=== PATIENT | male | born 1950 | race Caucasian/White ===

== ENCOUNTER 2019-09-01 10:54 | Day surgery (SDC) | payer MEDICARE ==
[~2019-09-01 10:54] MED LIST: ACETAMINOPHEN 1,000 MG/100 ML BTL IVPB ONE; CEFAZOLIN 2 Gram 2 GM/50 ML BAG IVPB ONE
[2019-09-01] MEDS ORDERED: MEPERIDINE 50 MG/1 ML VIAL IVP ONE (10:55)
[2019-09-01] MEDS ORDERED: MORPHINE SULFATE (PACU ONLY) 4 MG/ML VIAL IVP ONE (10:55)
[2019-09-01] MEDS ORDERED: PROPOFOL 10 MG/ML VIAL IV ONE (10:55)
[2019-09-01] MEDS ORDERED: MEPERIDINE PCA 10 MG/ML VIAL IV ONE (10:55)
[2019-09-01 11:15] LABS: HEMATOCRIT 44.9 % (42.0-52.0); HEMOGLOBIN 15.4 gm/dl (14.0-18.0); MEAN CORPUSCULAR HEMOGLOBIN 33.6 pg (27-33); MEAN CORPUSCULAR HGB CONC 34.3 g/dl (32-36); MEAN PLATELET VOLUME 9.3 fl (7.4-10.4); PLATELET COUNT 358 K/uL (130-400); RED BLOOD COUNT 4.58 M/uL (4.40-5.70); RED CELL DISTRIBUTION WIDTH 13.6 % (11.5-14.5); WHITE BLOOD COUNT W/O DIFF 9.8 K/uL (4.2-12.2)
[2019-09-01 11:25] LABS: BLOOD UREA NITROGEN 28 mg/dL (8-23); CREATININE 0.9 mg/dL (0.7-1.2); EST GLOMERULAR FILTRATION RATE > 60 mL/min; GLUCOSE,RANDOM 109 mg/dL (74-109)
[2019-09-01] MEDS ORDERED: RINGERS SOLUTION,LACTATED 1,000 ML IV ONE ×2 (11:30→14:30)
[2019-09-01] MEDS ORDERED: BUPIVACAINE 0.5% W/EPI MPF 30 ML VIAL SQ ONE ×2 (14:26)
[2019-09-01] MEDS ORDERED: MORPHINE SULFATE 10MG/1ML **1ML VIAL IU ONE (14:44)
[2019-09-01] MEDS ORDERED: METHYLPREDNISOLONE 40MG/VIAL IU ONE (14:44)
--- NOTE | 2019-09-03 08:01 | Operative Note ---
DATE OF SURGERY: 09/01/2019 PREOPERATIVE DIAGNOSIS: Internal derangement of the left knee. POSTOPERATIVE DIAGNOSES: 1. Complex tear involving the posterior horn of the medial meniscus. 2. Complex tear involving the lateral horn of the lateral meniscus. 3. Grade 3 chondromalacia of patella. 4. Fiber cartilage with loose marginal cartilage of the notch. 5. Grade 3 chondromalacia of medial femoral condyle. 6. Grade 3 chondromalacia of lateral femoral condyle. 7. Diffuse synovitis. OPERATION: 1. Left knee arthroscopy with partial medial and lateral meniscectomies. 2. Left knee arthroscopy with synovectomy. 3. Left knee arthroscopy with chondroplasty of the medial and lateral patellofemoral compartments. STAFF SURGEON: Benji Daniels MD ANESTHESIA: General. PREPARATION: Chloraprep. INDIVIDUAL CONSIDERATIONS: None. PROCEDURE: The patient was taken to the operating room and placed supine on the operating room table. The patient had a successful induction with general anesthetic. The left lower extremity was prepped and draped in the usual fashion. The patient had a superolateral inflow cannula placed. Skin was infiltrated with 0.5% Marcaine with epinephrine prior. A clear effusion was drained. The knee was inflated with normal saline. An inferomedial and an inferolateral portal were made in a similar fashion. The arthroscope was introduced through the inferolateral portal up into the pouch. Patellofemoral joint showed a diffuse synovitis in the pouch and both gutters, which was debrided out. Grade 3 changes on the patella were smoothed with a shaver. Fiber cartilage of the notch with loose marginal cartilage was debrided medially. Complex degenerative tear involving the posterior horn of the medial meniscus was debrided back to a stable rim with a basket forceps and a shaver. There were grade 3 changes from the posterior half of the femoral condyle medially, and this was smoothed with a shaver. In the notch, the cruciates were normal. Lateral compartment structures show a fringe tear of the lateral meniscus which was debrided back to a stable rim with a basket forceps and a shaver. There were grade 3 changes on the femoral laterally also centered at 45 degrees about the size of an elongated half dollar which was smoothed off with a shaver. The knee was then irrigated out with saline to remove loose floating debris. Portals were closed with kimberlyn, and 20 mL of 0.5% Marcaine with epinephrine along with 4 mg of morphine and 40 mg of Depo-Medrol were injected into the knee. A sterile bulky compressive dressing was applied. The patient tolerated procedure well. Needle and sponge counts were correct. Estimated blood loss was minimal. He was taken back to recovery in good condition. There were no complications. CAROLEE
== END 2019-09-01 15:40 | disposition home or self-care (01) ==
LOC: SUR 10:54
PROVIDERS: ATTEND Orthopaedic Surgery
DX: S83.232A Complex tear of medial meniscus, current injury, left knee, initial encounter (principal); S83.272A Complex tear of lateral meniscus, current injury, left knee, initial encounter; M94.262 Chondromalacia, left knee; M22.42 Chondromalacia patellae, left knee; I10 Essential (primary) hypertension; I48.91 Unspecified atrial fibrillation
CPT/HCPCS: 29880; 29875; 01400; 80048; 85027; J0690; J2270; J1030; J2175; J7120

== ENCOUNTER 2020-01-18 08:27 | Day surgery (SDC) | payer MEDICARE ==
[~2020-01-18 08:27] MED LIST changes: -ACETAMINOPHEN 1,000 MG/100 ML BTL IVPB ONE; +CELECOXIB 100 MG CAPSULE PO ONE; +FAMOTIDINE 20MG TABLET PO ONE; +MECLIZINE 25 MG TABLET PO ONE; +METOCLOPRAMIDE 10 MG TABLET PO ONE; +VANCOMYCIN 1GM/200ML PREMIX 1 GM/200 ML PIGGYBACK IVPB ONE
[2020-01-18] MEDS ORDERED: LIDOCAINE 2% MDV (20MG/ML) 20ML VIAL IV ONE (08:28)
[2020-01-18] MEDS ORDERED: *PACU ONLY* KETAMINE HCL 10 MG/ML (20ML) VIAL IV ONE (08:28)
[2020-01-18] MEDS ORDERED: FENTANYL PF 100MCG/2ML VIAL IV ONE (08:28)
[2020-01-18] MEDS ORDERED: DEXAMETHASONE 4 MG/ML 1ML VIAL IVP ONE (08:28)
[2020-01-18] MEDS ORDERED: PROPOFOL 10 MG/ML VIAL IV ONE (08:28)
[2020-01-18] MEDS ORDERED: ROPIVACAINE HCL (NAROPIN) /PF 5MG/ML 20ML VIAL IV ONE (08:28)
[2020-01-18] MEDS ORDERED: 0.9 % SODIUM CHLORIDE 1000ML 1,000 ML IV ONE ×2 (09:10→11:10)
[2020-01-18 09:30] LABS: ABO GROUP A; ANTIBODY SCREEN NEGATIVE (NEGATIVE); RH TYPE NEGATIVE
[2020-01-18] MEDS ORDERED: SODIUM CHLORIDE IV ONE (10:26)
[2020-01-18] MEDS ORDERED: RINGERS SOLUTION,LACTATED 400 ML IV ONE (10:26)
[2020-01-18] MEDS ORDERED: TRANEXAMIC ACID 1,000 MG/10 ML ML IV ONE (10:52)
[2020-01-18] MEDS ORDERED: TRANEXAMIC ACID 1,000 MG/10 ML ML IU ONE (10:52)
[2020-01-18] MEDS ORDERED: BUPIVACAINE 0.5% W/EPI MPF 30 ML VIAL IU ONE (10:52)
[2020-01-18] MEDS ORDERED: HYDROCODONE/APAP 10/325 TABLET PO PRN ×2 (11:48)
[2020-01-18] MEDS ORDERED: ACETAMINOPHEN W/ CODEINE 300MG/60MG TABLET PO PRN ×2 (11:48)
[2020-01-18] MEDS ORDERED: TRAMADOL HCL 50 MG TABLET PO PRN (11:48)
[2020-01-18] MEDS ORDERED: ZOLPIDEM TARTRATE 5 MG TABLET PO PRN (11:48)
[2020-01-18] MEDS ORDERED: AL HYDROX/MAG HYDROX 30ML UD PO PRN (11:48)
[2020-01-18] MEDS ORDERED: NALOXONE 0.4 MG/1 ML VIAL IVP PRN (11:48)
[2020-01-18] MEDS ORDERED: ONDANSETRON HCL IV 4 MG/2 ML VIAL IVP PRN (11:48)
[2020-01-18] MEDS ORDERED: DIPHENHYDRAMINE HCL 25 MG CAPSULE PO PRN (11:48)
[2020-01-18] MEDS ORDERED: BISACODYL 10 MG SUPP RC PRN (11:48)
[2020-01-18] MEDS ORDERED: ACETAMINOPHEN 325 MG TAB PO PRN (11:48)
[2020-01-18] MEDS ORDERED: HYDROMORPHONE HCL 2 MG/ML VIAL IM PRN (11:48)
[2020-01-18] MEDS ORDERED: KETOROLAC 30 MG/ML VIAL IVP PRN (11:48)
[2020-01-18] MEDS ORDERED: MAGNESIUM HYDROXIDE 30 ML UDC PO PRN (11:48)
[2020-01-18] MEDS ORDERED: FENTANYL PF 100MCG/2ML VIAL IVP ONE ×4 (12:09→12:33)
[2020-01-18] MEDS: LOSARTAN POTASSIUM 25 MG TABLET PO SCH (14:53)
[2020-01-18] MEDS: HYDROCHLOROTHIAZIDE 12.5 MG CAPSULE PO SCH (14:54)
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
[2020-01-18] MEDS: POTASSIUM CHLORIDE/D5-0.9%NACL 20 MEQ/1,000 ML BAG IV SCH ×2 (17:10→22:47)
[2020-01-18] MEDS: CEFAZOLIN 2 Gram 2 GM/50 ML BAG IVPB SCH (22:46)
[2020-01-18] MEDS: DOCUSATE SODIUM 100 MG CAPSULE PO SCH ×2 (22:46→23:01)
[2020-01-19] MEDS: CEFAZOLIN 2 Gram 2 GM/50 ML BAG IVPB SCH ×2 (01:35→10:10)
[2020-01-19] MEDS: POTASSIUM CHLORIDE/D5-0.9%NACL 20 MEQ/1,000 ML BAG IV SCH (06:12)
[2020-01-19 07:19] LABS: HEMATOCRIT 41.9 % (42.0-52.0); HEMOGLOBIN 14.4 gm/dl (14.0-18.0)
[2020-01-19 07:42] LABS: BLOOD UREA NITROGEN 17 mg/dL (8-23); CREATININE 0.8 mg/dL (0.7-1.2); EST GLOMERULAR FILTRATION RATE > 60 mL/min; GLUCOSE,RANDOM 110 mg/dL (74-109)
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
--- NOTE | 2020-01-19 09:30 | Operative Note ---
DATE OF SURGERY: 01/18/2020 PREOPERATIVE DIAGNOSIS: End-stage arthrosis of the left knee. POSTOPERATIVE DIAGNOSIS: End-stage arthrosis of the left knee. OPERATION: Cemented left total knee arthroplasty using Burgess and Nephew Drea II components with a size 7 Oxinium femur, a size 7 stemmed tibia baseplate, a 9 mm lipped highly crosslinked tibial insert, and a 35 mm all-plastic patella. STAFF SURGEON: Benji Daniels MD HOSE SPRAYER: Che Meli Christopher ANESTHESIA: Spinal. PREPARATION: Chloraprep. INDIVIDUAL CONSIDERATIONS: None. PROCEDURE: The patient was taken to the operating room, placed supine on the operating room table. He had a successful induction of a spinal anesthetic. The left lower extremity was prepped and draped in the usual fashion. The patient had a midline approach to the knee. The limb was elevated and tourniquet was inflated to 250 mmHg. Sharp dissection carried down through skin and subcutaneous tissue. Small veins were coagulated with a Bovie. A medial arthrotomy was performed. The patella was everted and the knee was flexed. The patient had exposed bone in the medial and patellofemoral compartments. Fat pad was resected, ACL was sacrificed, and provisional anterior meniscectomies were performed. The capsule was released from the medial proximal tibia. The initial femoral tugboat pilot hole was then made freehand. The intramedullary femoral cutting jig was placed. It was cut in 7.0 degrees of valgus and adjusted for rotation and secured with pins for a 10 mm resection. The initial transverse cut was then made. The skin guide was placed in the anterior and posterior tugboat pilot holes. It was cut in 3 degrees of external rotation. After impacting the tugboat pilot holes, it was found that a size 7 would be appropriate. The anterior and posterior cuts followed by chamfer cuts were made. Osteophytes removed, and a size 7 trial was placed and found to fit well. The tibia was brought forward, and the remainder of the meniscal remnants removed with a Bovie. The extraarticular tibial cutting jig was placed. It was cut in neutral with a 3-degree AP slope. It was set for a 9 mm resection keyed off the high lateral side and secured with pins. When cutting the tibia, care was taken to preserve the PCL insertion on the tibia. Medial osteophytes removed, and I found that I could fit a size 7 baseplate. It was adjusted for rotation and secured with pins. With a 9 mm trial and femoral trial, there was excellent motion and stability. Ligamentous balance and rotation alignment were thought to be normal. Femoral tugboat pilot holes were impacted and the tri-flange tibial stamp keel stamp was impacted, and these trial components were removed. The patient had a thick patella and roughly 9 mm of bone was removed freehand. I could easily fit a 35 patella, and the 3 tugboat pilot holes were drilled. The knee was then thoroughly irrigated out with pulsatile Betadine and saline to remove any visual or palpable debris. The tourniquet was let down briefly to get bleeders posteriorly and then placed back up again and then thorough irrigation. Bony surfaces were then dried with a CarboJet. A size 7 stemmed tibia baseplate was cemented into place followed by impaction of the 9 mm lipped highly crosslinked tibial insert followed by cementing in the size 7 Legion Oxinium femur followed by cementing in the 35 mm all-plastic patella. The implant surfaces were compressed, excess cement was removed. After the cement had set, there was excellent motion and stability. Ligamentous balance, rotation alignment, and patellofemoral tracking were normal. No lateral release was required. Final irrigation, and then tourniquet was let down. Hemostasis was obtained with a Bovie. The capsule and periosteum were then infiltrated with 30 mL of 0.5% Marcaine with epinephrine. The capsule was then closed with a running #2 quill, subcu was closed in layers with running 0 quill, skin was closed with kimberlyn. Then 30 mL of saline was mixed with 1 g of tranexamic acid and injected into the knee through a sterile 18-gauge needle, and a sterile bulky compressive ARASH- type dressing was applied. The patient tolerated the procedure well. Needle and sponge counts were correct. Estimated blood loss was minimal, and he was taken back to recovery in good condition. There were no complications. CAROLEE
--- NOTE | 2020-01-19 09:43 | Physical Therapy Tx Note ---
Physical Therapy Tx Note - Treatment Note Tolerated: Good Total Time Spent With Patient: 25 Physical Therapy Tx Note: Detail (Patient was seated on edge of bed upon MANAGING DIRECTOR ATLAS arrival. Patient reports his left knee is stiff and sore this morning. Patient transferred sit to and from stand SBA x1. Patient ambulated 164 feet with wheeled walker SBA x1. Patient required verbal cueing to keep walker closer to body. Patient descended and ascended 3 steps with using stairwell railing and walker. Patient transferred sit to supine independently. Patient scooted up in bed independently. Patient performed the following exercises x5-10 reps each: glut squeezes, ankle pumps, quad sets, heel slides, SLR, and hamstring sets. Patient tolerated treatment well. Patient displays good understanding of ambulation with walker, stair climbing, and HEP. Patient was left reclined in bed with call light within reach. Patient discharged from inpatient PT at this time as all goals are met.) Physical Therapy Problem List: Detail (Decreased L knee AROM and L LE strength.) Physical Therapy Goals: 1) The patient will ambulate with assistive device household distances WBAT on the L LE independently. Met. 2) The patient will ambulate on stairs with supervision for safety using proper technique. Met. 3) The patient will be independent wtih TKA HEP. Met. Prognosis: Good Physical Therapy Plan: Patient discharged from inpatient PT at this time as all goals are met.
[2020-01-19] MEDS: DOCUSATE SODIUM 100 MG CAPSULE PO SCH (09:54)
[2020-01-19] MEDS: LOSARTAN POTASSIUM 25 MG TABLET PO SCH (09:54)
[2020-01-19] MEDS: HYDROCHLOROTHIAZIDE 12.5 MG CAPSULE PO SCH (09:54)
[2020-01-19] MEDS ORDERED: RIVAROXABAN 10 MG TABLET PO SCH (10:00)
[2020-01-19] MEDS ORDERED: FERROUS SULFATE 325 MG TAB PO SCH (10:00)
== END 2020-01-19 11:43 | disposition home or self-care (01) ==
LOC: SUR 08:27 → MEDSURG 12:49 → SUR 01-19 11:43
PROVIDERS: ATTEND Orthopaedic Surgery
DX: M17.12 Unilateral primary osteoarthritis, left knee (principal); I10 Essential (primary) hypertension; Q60.0 Renal agenesis, unilateral
CPT/HCPCS: 76942; 80048; 85014; 85018; 86850; 86900; 86901; C1776; J3370; J3480; J7030; J7120